=== PATIENT | female | born 1995 | race Caucasian/White ===

== ENCOUNTER 2019-12-04 20:04 | Emergency (ER) | payer BC ==
--- NOTE | 2019-12-04 21:09 | EDM.PDOC ---
ED HPI GENERAL MEDICAL PROBLEM - General Chief Complaint: Gastrointestinal Problem Stated Complaint: ANUS PAIN Time Seen by Provider: 12/04/19 20:32 Source of Information: Reports: Patient History Limitations: Reports: No Limitations - History of Present Illness INITIAL COMMENTS - FREE TEXT/NARRATIVE: The patient presents with rectal pain and possibly a hemorrhoid. The patient says this has been going on for about 2 weeks. She has been having the pain and bleeding at times. She has no fever or chills. She has no abdominal pain. She felt what she thinks is a hemorrhoid today. Onset: Gradual Duration: Week(s): (2) Location: Reports: Other (Rectal) Quality: Reports: Sharp Severity: Moderate Improves with: Reports: None Worsens with: Reports: None Associated Symptoms: Reports: No Other Symptoms Anus Pain Score (Numeric/FACES): 10 - Related Data Allergies Allergy/AdvReac Type Severity Reaction Status Date / Time No Known Allergies Allergy Verified 12/04/19 20:26 Home Meds: Home Meds . [No Known Home Meds] 12/04/19 [History] ED ROS GENERAL - Review of Systems Review Of Systems: See Below Constitutional: Reports: No Symptoms HEENT: Reports: No Symptoms Respiratory: Reports: No Symptoms Cardiovascular: Reports: No Symptoms Endocrine: Reports: No Symptoms GI/Abdominal: Reports: Other (Rectal pain) : Reports: No Symptoms Musculoskeletal: Reports: No Symptoms ED EXAM, GI/ABD - Physical Exam Exam: See Below Exam Limited By: No Limitations General Appearance: Alert, No Apparent Distress Ears: Normal External Exam Nose: Normal Inspection Head: Atraumatic, Normocephalic Neck: Normal Inspection Respiratory/Chest: No Respiratory Distress, Lungs Clear, Normal Breath Sounds Cardiovascular: Regular Rate, Rhythm, No Edema, No Murmur GI/Abdominal Exam: Soft, Non-Tender, No Organomegaly, No Mass Rectal (Female) Exam: Other (External hemoorhoid noted. There was no bleeding and ) Course - Vital Signs Last Recorded V/S: Last Vital Signs Temp 98.6 F 12/04/19 20:23 Pulse 105 H 12/04/19 20:23 Resp 16 12/04/19 20:23 BP 112/79 12/04/19 20:23 Pulse Ox 94 L 12/04/19 20:23 - Re-Assessments/Exams Free Text/Narrative Re-Assessment/Exam: 12/04/19 21:28 I examined the patient with my nurse Alpesh. She has a hemorrhoid. I will get her on some lidocaine and hydrocortisone suppositories and have her follow up with Dr Hernandez. Departure - Departure Time of Disposition: 21:05 Disposition: Home, Self-Care 01 Condition: Good Clinical Impression: Hemorrhoid Qualifiers: Hemorrhoid type: other Qualified Code(s): K64.8 - Other hemorrhoids - Discharge Information *PRESCRIPTION DRUG MONITORING PROGRAM REVIEWED*: Not Applicable *COPY OF PRESCRIPTION DRUG MONITORING REPORT IN PATIENT HANDY: Not Applicable Instructions: Hemorrhoids, [id number] Referrals: PCP,None [Primary Care Provider] - Carlos Henrandez MD [Physician] - 1 Week Forms: ED Department Discharge Additional Instructions: Apply the lidocaine cream 3 times per day as needed for pain and use the hydrocortisone suppository as needed 3 times per day. Follow up with Dr Hernandez and please return if you are worse. Try to drink plenty of water and take a stool softener like colace to keep your stools loose. Sepsis Event Note - Evaluation Sepsis Screening Result: No Definite Risk - Focused Exam Vital Signs: Vital Signs Temp Pulse Resp BP Pulse Ox 12/04/19 20:23 98.6 F 105 H 16 112/79 94 L Date Exam was Performed: 12/04/19 Time Exam was Performed: 21:28
== END 2019-12-04 21:28 | disposition home or self-care (01) ==
LOC: JD.ED 20:04
DX: K64.4 Residual hemorrhoidal skin tags (principal)
CPT/HCPCS: 99282; 99283

== ENCOUNTER 2024-02-14 06:57 | Inpatient (IN) | payer OTHER ==
[~2024-02-14 06:57] MED LIST: Bupivacaine 0.25% 10 ML SDV ONE
[2024-02-14] MEDS ORDERED: Ondansetron 4 MG/2 ML SDV IVPUSH PRN (07:04)
[2024-02-14] MEDS ORDERED: Sodium Chloride 0.9% 10 ML Syringe FLUSH PRN (07:04)
[2024-02-14] MEDS ORDERED: Lidocaine 1% 50 ML MDV INJECT PRN (07:04)
[2024-02-14] MEDS ORDERED: Nalbuphine 10 MG/ML Syringe IVPUSH PRN (07:04)
[2024-02-14] MEDS ORDERED: Oxytocin/Lactated Ringers 30 UNIT/500 ML BAG IV SCH (07:15)
[2024-02-14 07:37] LABS: BASOPHILS PERCENT AUTO 0.4 % (0.0-1.0); EOSINOPHILS ABSOLUTE AUTO 0.1 K/mm3 (0.0-0.4); EOSINOPHILS PERCENT AUTO 0.7 % (0.0-6.0); HEMATOCRIT 34.5 % (37.0-47.0); HEMOGLOBIN 11.9 gm/dl (12.0-16.0); IMMATURE GRAN ABSOLUTE AUTO 0.08 K/mm3 (0.00-0.05); LYMPHOCYTES ABSOLUTE AUTO 2.2 K/mm3 (1.0-4.8); LYMPHOCYTES PERCENT AUTO 27.7 % (24.0-44.0); MEAN CORPUSCULAR HEMOGLOBIN 29.9 pg (28.0-32.0); MEAN CORPUSCULAR HGB CONC 34.5 g/dl (32.0-36.0); MEAN CORPUSCULAR VOLUME 86.7 fl (83.0-99.0); MEAN PLATELET VOLUME 11.7 fl (9.4-12.3); MONOCYTES ABSOLUTE AUTO 0.6 K/mm3 (0.0-0.8); MONOCYTES PERCENT AUTO 7.4 % (0.0-8.0); NEUTROPHILS ABSOLUTE AUTO 5.1 K/mm3 (1.8-7.7); NEUTROPHILS PERCENT AUTO 62.8 % (41.0-71.0); PLATELET COUNT,PLT 143 K/mm3 (150-400); RED BLOOD CELL COUNT 3.98 M/mm3 (4.10-5.30); WHITE BLOOD CELL COUNT,WBC 8.06 K/mm3 (3.9-11.3)
[2024-02-14] MEDS: Lactated Ringers 1,000 ML IV SCH (08:11)
[2024-02-14] MEDS: Oxytocin/Lactated Ringers 30 UNIT/500 ML BAG IV SCH (08:11)
[2024-02-14] MEDS ORDERED: Sodium Chloride 0.9% 10 ML Syringe FLUSH SCH (09:00)
[2024-02-14] MEDS ORDERED: diphenhydrAMINE 50 MG/ML SDV IVPUSH PRN (11:32)
[2024-02-14] MEDS ORDERED: ePHEDrine 50 MG/ML SDV IVPUSH PRN (11:32)
[2024-02-14] MEDS: fentaNYL 100 MCG/2 ML SDV EPIDUR PRN (11:43)
[2024-02-14] MEDS: Bupivacaine/fentaNYL/NS 100 ML Bag EPIDUR PRN (11:46)
[2024-02-14] MEDS ORDERED: Witch Hazel Medicated Pads 40/Jar TOP PRN (17:46)
[2024-02-14] MEDS ORDERED: Benzocaine/Menthol 20%-0.5% Spray 78 GM Cannister TOP PRN (17:46)
[2024-02-14] MEDS ORDERED: Docusate Sodium 100 MG Cap PO PRN (17:46)
[2024-02-14] MEDS: Ibuprofen 600 MG Tab PO PRN (19:39)
[2024-02-14] MEDS: Acetaminophen 325 MG Tab PO PRN (23:55)
== END 2024-02-15 17:43 | disposition home or self-care (01) | DRG 807 ==
LOC: JD.OB 06:57 → OBSVTOIN 16:47 → JD.OB 16:47
PROVIDERS: ADMIT Obstetrics & Gynecology; ATTEND Obstetrics & Gynecology
PROC: 10E0XZZ Delivery of Products of Conception, External Approach (ICD-10-PCS; principal; 2024-02-14)
PROC: 10907ZC Drainage of Amniotic Fluid, Therapeutic from Products of Conception, Via Natural or Artificial Opening (ICD-10-PCS; 2024-02-14)
PROC: 3E033VJ Introduction of Other Hormone into Peripheral Vein, Percutaneous Approach (ICD-10-PCS; 2024-02-14)
PROC: 3E0R3BZ Introduction of Anesthetic Agent into Spinal Canal, Percutaneous Approach (ICD-10-PCS; 2024-02-14)
PROC: 00HU33Z Insertion of Infusion Device into Spinal Canal, Percutaneous Approach (ICD-10-PCS; 2024-02-14)
DX: O26.893 Other specified pregnancy related conditions, third trimester (principal); Z37.0 Single live birth; O69.81X0 Labor and delivery complicated by cord around neck, without compression, not applicable or unspecified; Z3A.39 39 weeks gestation of pregnancy; Z67.11 Type A blood, Rh negative
CPT/HCPCS: 36415; 51702; 59025; 59409; 85025; 86592; 86850; 86870; 86900; 86901; A9270-GY; J3010; J3490; J7120; J7999

== ENCOUNTER 2025-05-16 04:59 | Inpatient (IN) | payer SELFPAY ==
[2025-05-16] MEDS ORDERED: Ondansetron 4 MG/2 ML SDV IVPUSH PRN (05:51)
[2025-05-16] MEDS ORDERED: Sodium Chloride 0.9% 10 ML Syringe FLUSH PRN (05:51)
[2025-05-16] MEDS ORDERED: Nalbuphine 10 MG/1 ML Vial IVPUSH PRN (05:51)
[2025-05-16 06:20] LABS: BASOPHILS ABSOLUTE AUTO 0.0 K/mm3 (0.0-0.2); BASOPHILS PERCENT AUTO 0.5 % (0.0-1.0); EOSINOPHILS ABSOLUTE AUTO 0.1 K/mm3 (0.0-0.4); EOSINOPHILS PERCENT AUTO 0.6 % (0.0-6.0); IMMATURE GRAN ABSOLUTE AUTO 0.10 K/mm3 (0.00-0.05); IMMATURE GRAN PERCENT AUTO 1.2 % (0.0-0.4); LYMPHOCYTES ABSOLUTE AUTO 2.6 K/mm3 (1.0-4.8); LYMPHOCYTES PERCENT AUTO 31.2 % (24.0-44.0); MEAN PLATELET VOLUME 11.4 fl (9.4-12.3); MONOCYTES ABSOLUTE AUTO 0.5 K/mm3 (0.0-0.8); MONOCYTES PERCENT AUTO 6.3 % (0.0-8.0); NEUTROPHILS ABSOLUTE AUTO 5.1 K/mm3 (1.8-7.7); NEUTROPHILS PERCENT AUTO 60.2 % (41.0-71.0); NRBC ABSOLUTE 0.00 (0.00-0.02); NRBC PERCENT 0.0 % (0.0-0.2); PLATELET COUNT,PLT 143 K/mm3 (150-400); RED BLOOD CELL COUNT 4.01 M/mm3 (4.10-5.30); WHITE BLOOD CELL COUNT,WBC 8.45 K/mm3 (3.9-11.3)
[2025-05-16] MEDS ORDERED: diphenhydrAMINE 50 MG/ML SDV IVPUSH PRN (07:00)
[2025-05-16] MEDS ORDERED: ePHEDrine 50 MG/ML SDV IVPUSH PRN (07:00)
[2025-05-16] MEDS: fentaNYL 100 MCG/2 ML SDV EPIDUR PRN (07:15)
[2025-05-16] MEDS: Bupivacaine/fentaNYL/NS 100 ML Bag EPIDUR PRN (07:15)
[2025-05-16] MEDS: Lactated Ringers 1,000 ML IV SCH (07:15)
[2025-05-16] MEDS: Oxytocin/0.9 % Sodium Chloride 30 UNIT/500 ML BAG IV SCH (08:57)
[2025-05-16] MEDS: Sodium Chloride 0.9% 10 ML Syringe FLUSH SCH (09:02)
[2025-05-16] MEDS ORDERED: Magnesium Hydroxide 400 MG/5 ML Susp 30 ML Cup PO PRN (15:34)
[2025-05-16] MEDS ORDERED: Oxytocin/0.9 % Sodium Chloride 30 UNIT/500 ML BAG IV SCH (15:34)
[2025-05-16] MEDS: Witch Hazel Medicated Pads 40/Jar TOP PRN (15:55)
[2025-05-16] MEDS: Benzocaine/Menthol 20%-0.5% Spray 78 GM Cannister TOP PRN (15:55)
[2025-05-17] MEDS: Prenatal Multivitamin with Calcium/Folic Acid/Iron Tab PO SCH (18:09)
== END 2025-05-17 16:00 | disposition home or self-care (01) | DRG 807 ==
LOC: JD.OBCHECK 04:59 → JD.OB 05:04 → JD.OBCHECK 07:48 → OBSVTOIN 14:33 → JD.OB 14:34
PROVIDERS: ADMIT Obstetrics & Gynecology; ATTEND Obstetrics & Gynecology
PROC: 10E0XZZ Delivery of Products of Conception, External Approach (ICD-10-PCS; principal; 2025-05-16)
PROC: 3E0R3BZ Introduction of Anesthetic Agent into Spinal Canal, Percutaneous Approach (ICD-10-PCS; 2025-05-16)
PROC: 00HU33Z Insertion of Infusion Device into Spinal Canal, Percutaneous Approach (ICD-10-PCS; 2025-05-16)
DX: O42.02 Full-term premature rupture of membranes, onset of labor within 24 hours of rupture (principal); Z37.0 Single live birth; Z3A.38 38 weeks gestation of pregnancy; O26.893 Other specified pregnancy related conditions, third trimester; Z67.11 Type A blood, Rh negative
CPT/HCPCS: 36415; 51702; 59025; 59409; 85025; 86592; A9270-GY; J3010; J3490; J7120; J7999